=== PATIENT | male | born 1970 | race Caucasian/White ===

== ENCOUNTER 2021-02-22 20:54 | Emergency (ER) | payer OTHER ==
[~2021-02-22 20:54] MED LIST: FLEXERIL 10 MG10 MG PO; NAPROSYN500 MG PO
== END 2021-02-23 00:35 | disposition home or self-care (01) ==
LOC: ER1 20:54
DX: R53.81 Other malaise (principal); F17.210 Nicotine dependence, cigarettes, uncomplicated; Z20.822 Contact with and (suspected) exposure to COVID-19
CPT/HCPCS: 0240U; 99283